=== PATIENT | female | born 1955 | race Caucasian/White ===

== ENCOUNTER 2017-06-17 10:37 | Emergency (ER) | payer OTHER ==
[2017-06-17 11:51] VITALS: BP 123/79
--- NOTE | 2017-06-17 12:21 | UC ---
Back Pain HPI - HPI Summary HPI Summary: 61 y/o female presents to the urgent care c/o mid back pain and RT side rib pain s/p fall backwards on steps at her son's house on 06/15/2016. She though it was going to get better. However, she was getting out of bed this morning and she felt a muscle pop. Pain got worse w/ movement 8/10. She took Naproxen 1 tab and pin decrease. Pain now is 2/10, but if she cough it hurts. Pt denies saddle anesthesia, urinary or fecal incontinence, urinary symptoms, numbness or tingling sensation over the lower extremities. - History of Current Complaint Chief Complaint: UCGeneralIllness Stated Complaint: BACK INJURY Time Seen by Provider: 06/17/17 12:12 Hx Obtained From: Patient ?: No - menopausal Onset/Duration: Sudden Onset, Lasting Days - 2 days, Still Present, Worse Since - this morning Timing: Intermittent - worse w/ movement, Lasting Days - 2 days Severity Initially: Moderate Severity Currently: Moderate Pain Intensity: 8 Pain Scale Used: 0-10 Numeric Back Pain: Is Discrete @ - RT side posterior delio rib pain, contusion and mid back pain s/p fall Character: Sharp - w/ movement, Spasmodic Aggravating Factor(s): Movement, Lifting, Cough Alleviating Factor(s): Rest, OTC Meds Associated Signs And Symptoms: Positive: Swelling - mild, Bruising - RT posterior mid ribs. Negative: Fever, Numbness, Tingling, Pain with Weight Bearing - Risk Factors AAA Risk Factors: Negative TAD Risk Factors: Negative Cauda Equina Risk Factors: Negative Epidural Abscess Risk Factors: Negative - Allergies/Home Medications Allergies/Adverse Reactions: Allergies Allergy/AdvReac Type Severity Reaction Status Date / Time codeine Allergy GI Upset Verified 06/17/17 11:51 Home Medications: Home Medications Naproxen TAB* [Naprosyn 250 mg TAB*] 1 tab PO ONCE 06/17/17 [History Confirmed 06/17/17] PMH/Surg Hx/FS Hx/Imm Hx Previously Healthy: Yes Other Endocrine History: Anemia - Surgical History Surgical History: None - Family History Known Family History: Positive: Cardiac Disease, Diabetes - Social History Occupation: Unemployed Lives: With Family Alcohol Use: None Substance Use Type: None Smoking Status (MU): Never Smoked Tobacco Review of Systems Constitutional: Negative Skin: Negative Eyes: Negative ENT: Negative Cardiovascular: Negative Gastrointestinal: Negative Genitourinary: Negative Motor: Negative Neurovascular: Negative Musculoskeletal: Decreased ROM - back to the Rt side, Other: - postrior back rib pain and mid back pain s/p fall Neurological: Negative Psychological: Negative Is Patient Immunocompromised?: No All Other Systems Reviewed And Are Negative: Yes Physical Exam - Summary Physical Exam Summary: Vital Signs Reviewed: Yes Appearance: Well-Appearing, Well-Nourished, female sitting in the examining table w/o any apparent distress. Eyes: Positive: Conjunctiva Clear - PERRLA, EOMI. ENT: Positive: Normal ENT inspection, Hearing grossly normal, Pharynx normal, TMs normal, Uvula midline Neck: Positive: Supple, Nontender, No Lymphadenopathy Respiratory: Positive: Chest non-tender, Lungs clear, Normal breath sounds, No respiratory distress Cardiovascular: Positive: RRR, No Murmur, Pulses Normal, Brisk Capillary Refill Abdomen Description: Positive: Nontender, No Organomegaly, Soft. Negative: CVA Tenderness (R), CVA Tenderness (L) Bowel Sounds: Positive: Present Musculoskeletal: Positive: Strength Intact, Other: - BACK: Patient walked into the urgent care room with symmetric ambulation, No signs of limping, antalgic, able to bear weight. No signs of trauma, No masses palpated. Point tenderness at the level of T10-12, No CVAT, no flank ecchymosis . No sacroiliac notch tenderness, No saddle anesthesia.ROM: limited due to pain on RT side bending, Straight Leg Raise: negative. Posterior back ribs #9-11 point tenderness w/ swelling and bruising. Patellar reflexes: brisk, symmetric Muscle strength lower extremities. Dorsiflexion/ plantar flexion of ankles. Heel/ toe walk. Lower extremities: Femoral, popliteal, posterior tibial, and dorsalis pedis pulses WNL. Pt refuse rectal exam Neurological: Positive: Alert, Muscle Tone Normal Psychological Exam: Normal Skin Exam: Normal Triage Information Reviewed: Yes Vital Signs: Initial Vital Signs Temp 97.4 F 06/17/17 11:47 Pulse 70 06/17/17 11:47 Resp 12 06/17/17 11:47 BP 123/79 06/17/17 11:47 Pulse Ox 100 06/17/17 11:47 Back Pain Course/Dx - Course Course Of Treatment: 61 y/o female presents to the urgent care c/o mid back pain and RT side rib pain s/p fall backwards on steps at her son's house on 06/15. She though it was going to get better. However, she was getting out of bed this morning and she felt a muscle pop. Pain got worse w/ movement 8/10. She took Naproxen 1 tab and pin decrease. Pain now is 2/10, but if she cough it hurts. Pt denies saddle anesthesia, urinary or fecal incontinence, urinary symptoms, numbness or tingling sensation over the lower extremities. Hx obtained. Pt w/ posterior RT sided ribs #9-11 w/ point tenderness, swelling and bruising on examination, O2Sat:100%. Thoracolumbar X-ray and RT side rib X-ray ordered. Impression: Degenerative disc disease, scoliosis and negative for Rib fracture and pneumothorax. Pt educated on DDD and advised to continue taking Naproxen PO, Rx flexeril PO and advised to wear a back support. Patient was also instructed to the f/u [facility] orthopedic in 1 week if symptoms do not improve or worsen. Patient understands and agrees. Patient is able to ambulate freely w/ o aid or limp. Plan of care was discussed with the patient and patient understands and agrees. All questions were answered at patient satisfaction. Pt left clinic hemodynamically stable. - Differential Dx/Diagnosis Differential Diagnosis/HQI/PQRI: Arthritis, Fracture, Herniated Disc, Strain, Sprain, Other - back spasm, contusion Provider Diagnoses: 1-RT side rib pain w/ contusion s/p fall. 2-Mid back pain s/p fall. 3- Degenerative disc disease Discharge - Sign-Out/Discharge Documenting (check all that apply): Discharge - Discharge Plan Condition: Stable Disposition: HOME Prescriptions: Cyclobenzaprine TAB* [Flexeril 10 MG TAB*] 10 mg PO TID PRN #15 tab PRN Reason: Spasms - Muscle Patient Education Materials: Muscle Spasm (ED), Back Pain (ED), Rib Contusion ( ED) Referrals: [facility] [place] [facility] REFERRAL [Outside] - If Needed Mike Aleman MD [Medical Doctor] - If Needed Additional Instructions: 1- Please continue taking Naproxen PO as directed after meals for pain. 2- Take Flexeril PO as directed for muscle spasm. Please do not drive while taking the medication. 3- Wear a back support. Avoid strenuous exercise or heavy lifting. 4- Please follow up with Orthopedic Dr or your PCP in 1 week if not improvement of symptoms, for further management. - Billing Disposition and Condition Condition: STABLE Disposition: HOME
--- NOTE | 2017-06-17 13:07 | RAD ---
HISTORY: Mid back pain, status post fall COMPARISONS: None VIEWS: 7, Frontal view of the chest with frontal and oblique views of the right hemithorax. FINDINGS: There is no displaced rib fracture or pneumothorax. The visualized lungs are clear. Degenerative changes are noted of the spine. IMPRESSION: NO DISPLACED RIB FRACTURE OR PNEUMOTHORAX.
--- NOTE | 2017-06-17 13:08 | RAD ---
HISTORY: Mid back pain, status post fall COMPARISONS: None VIEWS: 2, Frontal and lateral views of the thoracic spine. FINDINGS: ALIGNMENT: There is a scoliotic curvature of the spine. VERTEBRAL BODIES: The vertebral body heights are normal. The interpedicular distances are normal. There is multilevel anterolateral marginal osteophyte formation. There is no acute displaced fracture. JOINTS: Unremarkable. INTERVERTEBRAL DISCS: There is diffuse loss of intervertebral disc height. SOFT TISSUE: Unremarkable OTHER: The visualized lungs are clear. IMPRESSION: SCOLIOSIS. DEGENERATIVE DISC DISEASE.
== END 2017-06-17 13:40 | disposition home or self-care (01) ==
LOC: UCEAST 10:37
DX: S20.221A Contusion of right back wall of thorax, initial encounter (principal); W10.8XXA Fall (on) (from) other stairs and steps, initial encounter; Y93.9 Activity, unspecified; Y92.008 Other place in unspecified non-institutional (private) residence as the place of occurrence of the external cause; R07.81 Pleurodynia; M51.35 Other intervertebral disc degeneration, thoracolumbar region; M41.85 Other forms of scoliosis, thoracolumbar region; Z88.5 Allergy status to narcotic agent
CPT/HCPCS: 72080; 99202; G0463